=== PATIENT | female | born 1950 | race Caucasian/White ===

== ENCOUNTER 2018-02-08 14:00 | Inpatient (IN) ==
[2018-02-08] MEDS ORDERED: Naloxone 0.4 MG/ML INJ IVP PRN (19:50)
[2018-02-08] MEDS ORDERED: Nitroglycerin 0.4 MG TAB.SUBL SL PRN (19:50)
--- NOTE | 2018-02-08 20:00 | Internal Med History&Physical ---
Date of Encounter: 02/08/18 Time of Encounter: 19:58 Internal Medicine - H&P: HPI Admitted From: Intrahospital Transfer History of present illness: Ms. Mahmood is a 67 year old female with history of hypertension, anxiety, depression , Prediabetes but not on any medication was transferred from [facility] for further evaluation of persistent chest pain and sinus bradycardia. As per patient she has persistent left-sided chest pain with intermittent radiation to left shoulder and associated with occasional sweating otherwise no shortness of breath. She visited to PCP who decreased to BB dose. last BB 12.5 mg was yesterday AM. to day went to [facility] for further evaluation. normal Troponin with sinus bradycardia was found and ERP decided to transfer [facility] for further eval. at present CP is /10. also c/o dizziness today Past Med Surg Social Fam HX - Past Medical History Medical history: no medical history Psychiatric history: anxiety, depression - Social History Smoking Status: Never smoker Smokeless Tobacco Status: No Alcohol use: none Drug use: none Internal Medicine - H&P: Meds ALPRAZolam [Xanax 0.5 MG Tablet] 0.5 mg PO DAILY 02/08/18 [History] Ascorbic Acid [Vitamin C] 1,000 mg PO DAILY 02/08/18 [History] Aspirin [Lo-Dose Aspirin EC] 81 mg PO DAILY 02/08/18 [History] BuPROPion XL (24 HR) [Wellbutrin XL] 150 mg PO DAILY 02/08/18 [History] Cholecalciferol (D-3) [Vitamin D] 2,000 unit PO DAILY 02/08/18 [History] Estrogens, Conjugated [Premarin] 0.3 mg PO DAILY 02/08/18 [History] FLUoxetine HCl [Fluoxetine HCl] 40 mg PO DAILY 02/08/18 [History] Gluc Tamayo/Chondro Tamayo A/Vit C/Mn [Glucosamine Chondroitin Tab] 1 each PO DAILY [History] Metoprolol Succinate [Toprol Xl] 25 mg PO DAILY 02/08/18 [History] Multivit-Min/Iron Fum/Folic AC [Ovwos-Gdcpajm-Bqzhtrum Tablet] 1 each PO DAILY 02/08/18 [History] Oxybutynin Chloride [Ditropan Xl] 5 mg PO DAILY 02/08/18 [History] Simvastatin [Zocor] 40 mg PO HS 02/08/18 [History] 3 Allergy/AdvReac Type Severity Reaction Status Date / Time Penicillins Allergy Anaphylaxis Verified 02/08/18 16:19 All Systems PM: A 10-system review of systems was performed and is negative for pertinent findings except as documented above in the HPI. - Constitutional Vitals: Temp Pulse Resp BP Pulse Ox 97.8 F 47 18 154/84 97 02/08/18 18:01 02/08/18 18:01 02/08/18 18:01 02/08/18 18:01 02/08/18 18:01 Exam: General appearance: No acute distress, A&O X 3 , obese Head exam: Atraumatic Eye exam: EOMI, PERRLA ENT exam: Moist oral mucosa Neck nontender, supple Respiratory exam: Clear to auscultation bilaterally Cardiovascular exam: Regular rhythm with bradycardia, no systolic murmur Abdominal exam: Soft, nontender, nondistended, positive bowel sounds Extremities exam: No calf tenderness, no pedal edema Present: Skin-no rash, warm, dry, intact Neurological exam: Alert, awake, oriented 3, CN II-XII intact, no focal deficits. No facial droop. Normal speech. - Assessment and plan (1) Chest pain in adult Current Visit: No Status: Acute Assessment and plan: Atypical chest pain but persistent. Risk factor remote a smoker, family history some kind of vascular disease in parents, hypertension, prediabetes, and never had cardiac assessment. Telemetry bed, Serial troponin oxygen when necessary. Hold beta darshan due to bradycardia. Consult cardiologists tomorrow morning. May need a stress test. (2) Bradycardia Current Visit: No Status: Acute Assessment and plan: No EKG sent from [facility]. Patient also felt slight dizzy therefore symptomatic bradycardia. It could be due to the side effect of beta darshan. May give IV fluid if needed. Bedrest. Cardiology consultation. (3) HTN (hypertension) Current Visit: Yes Status: Acute Assessment and plan: Started low-dose lisinopril. Held beta darshan. Close monitoring. Qualifiers: Hypertension type: essential hypertension Qualified Code(s): I10 - Essential (primary) hypertension (4) Prediabetes Current Visit: Yes Status: Acute Assessment and plan: a1c. accuchecks, SSI. (5) Depression Current Visit: Yes Status: Chronic Assessment and plan: continue home meds. stable Qualifiers: Depression Type: unspecified Qualified Code(s): F32.9 - Major depressive disorder, single episode, unspecified (6) DVT prophylaxis Current Visit: Yes Status: Acute Assessment and plan: scd - Time Spent With Patient Total time spent is greater than 50% in coordination of care (as documented) at patient's floor/unit and/or counseling patient: 25 - 35 minutes
[2018-02-08] MEDS ORDERED: Dextrose Gel 15 GM/37.5 ML TUBE PO PRN ×2 (20:17)
[2018-02-08] MEDS ORDERED: *HR* Dextrose 50 % in Water (Syg) 50 ML SYRINGE IVP PRN (20:17)
[2018-02-08] MEDS ORDERED: D5% in Water 1,000 ML IVC PRN (20:17)
[2018-02-08 20:40] LABS: Basophils # 0.1 K/mcL (0.0-0.2); Basophils % 0.8 %; Eosinophils # 0.2 K/mcL (0.0-0.6); Eosinophils % 3.1 %; Hematocrit 42.3 % (35.3-44.9); Hemoglobin 14.2 g/dL (11.5-15.4); Immature Granulocytes % 0.2 % (0-4); Lymphocytes # 2.4 K/mcL (0.6-4.6); Lymphocytes % 37.2 %; Mean Corpuscular HGB Conc 33.6 g/dL (31.6-35.5); Mean Corpuscular Volume 92.4 fL (83.0-100.0); Mean Platelet Volume 10.7 fL (9.4-12.4); Monocytes # 0.5 K/mcL (0.0-1.3); Monocytes % 8.1 %; Neutrophils # 3.3 K/mcL (1.6-8.9); Platelet Count 239 K/mcL (140-400); Red Blood Count 4.58 M/mcL (3.82-4.97); Red Cell Distribution Width 13.2 % (11.5-14.5); Segmented Neutrophils % 50.6 %
[2018-02-08 20:51] LABS: Estimated Average Glucose 131 mg/dl; Hemoglobin A1C 6.2 %
[2018-02-08 20:59] LABS: BUN/Creatinine Ratio 19 (6-26); Blood Urea Nitrogen 19 mg/dL (8-23); Calcium 9.4 mg/dL (8.6-10.3); Carbon Dioxide 30 mEq/L (23-29); Chloride 106 mEq/L (98-107); Glucose 119 mg/dL (70-105); Osmolality,Calculated 293 (280-300); Potassium 3.9 mEq/L (3.5-5.1); Sodium 140 mEq/L (136-145); eGFR For African Americans > 60 (> 60); eGFR For Non-African Americans 56 (> 60)
[2018-02-08 21:01] LABS: Albumin 3.8 g/dL (3.5-5.7); Albumin/Globulin Ratio 1.6 (1.1-2.2); Bilirubin,Direct 0.1 mg/dL (0.0-0.2); Bilirubin,Indirect 0.3 mg/dL (0.0-1.2); Bilirubin,Total 0.4 mg/dL (0.3-1.0); Globulin 2.4 g/dL (2.4-3.5); Total Protein 6.2 g/dL (6.4-8.9)
[2018-02-08 21:14] LABS: Thyroid Stimulating Hormone 1.941 mcIU/mL (0.340-5.600)
[2018-02-08] MEDS: ALPRAZolam 0.5 MG TABLET PO SCH (21:44)
[2018-02-09] MEDS: Insulin LISPRO 300 UNITS/3 ML VIAL SQ SCH ×4 (00:06→17:15)
[2018-02-09 02:18] LABS: Chol/HDL Ratio 3.7 (0-4.9)
[2018-02-09] MEDS ORDERED: ALPRAZolam 0.5 MG TABLET PO SCH (09:00)
[2018-02-09] MEDS ORDERED: Aspirin 81 MG TAB.CHEW PO SCH (09:00)
--- NOTE | 2018-02-09 11:02 | Cardiology Consult Note ---
Date of Encounter: 02/09/18 Time of Encounter: 10:45 Assessment and Plan (1) Chest pain Current Visit: Yes Status: Acute Chest pain atypical for angina. Lasts hours and cardiac enzymes negative, EKG unremarkable with no ST-T wave changes, HR 50bpm. Will schedule for treadmill nuclear stress test to evaluate for ischemia. Will also evaluate for chronotropic incompetence. Qualifiers: Chest pain type: other chest pain Qualified Code(s): R07.89 - Other chest pain; R07.8 - Other chest pain (2) Sinus bradycardia Current Visit: Yes Status: Acute Beta darshan held. Will have patient ambulate on treadmill and evaluate for chronotropic incompetence. Consider Holter monitor as outpatient. (3) HTN (hypertension) Current Visit: No Status: Chronic Qualifiers: Hypertension type: essential hypertension Qualified Code(s): I10 - Essential (primary) hypertension Discussion w patient/family: The assessment and plan as outlined above was discussed with the patient and/or family members who expressed understanding and agreement. All questions were answered. Thank you for involving us in the care of your patient. Please call with any questions. History of Present Illness Consult date: 02/09/18 Requesting physician: Tanesha Khoury Consult reason: chest pain Chief complaint: chest pain History of present illness: Ms. Mahmood is a 67 year old female with HTN presents as transfer from [facility] ED to [facility] for evaluation of CP. For past week, pt has had intermittent chest discomfort. Chest discomfort radiates to L shoulder, associated with SOB, nausea, diaphoresis. States symptoms occur at rest. Last for hours and then resolve. Improved with Tylenol. Saw PCP who noted her HR was in 40s per pt and PCP decreased her beta darshan dose to metoprolol 12.5mg daily. Denies syncope. Occasional orthostatic lightheadedness. Denies prior cardiac history, prior cardiac testing. Denies family history of CAD. Former smoker- quit 8 years ago, previously 1/2ppd. Past Med Surg Social Fam HX - Past Medical History Source: patient Medical history: hypertension Psychiatric history: anxiety, depression - Social History Smoking Status: Former smoker (quit 8 years ago, previous 1/2ppd) Smokeless Tobacco Status: No Alcohol use: none Drug use: none - Family History Father Hx Family Cardiac Disorders: Yes (pacemaker) Mother Hx Family Cardiac Disorders: Yes (carotid artery disease) Medications and Allergies ALPRAZolam [Xanax 0.5 MG Tablet] 0.5 mg PO HS 02/08/18 [History] Ascorbic Acid [Vitamin C] 1,000 mg PO DAILY 02/08/18 [History] Aspirin [Lo-Dose Aspirin EC] 81 mg PO DAILY 02/08/18 [History] BuPROPion XL (24 HR) [Wellbutrin XL] 150 mg PO DAILY 02/08/18 [History] Cholecalciferol (D-3) [Vitamin D] 2,000 unit PO DAILY 02/08/18 [History] Estrogens, Conjugated [Premarin] 0.3 mg PO DAILY 02/08/18 [History] FLUoxetine HCl [Fluoxetine HCl] 40 mg PO DAILY 02/08/18 [History] Gluc Tamayo/Chondro Tamayo A/Vit C/Mn [Glucosamine Chondroitin Tab] 1 each PO DAILY [History] Metoprolol Succinate [Toprol Xl] 25 mg PO DAILY 02/08/18 [History] Multivit-Min/Iron Fum/Folic AC [Pmylg-Hihfvsl-Aasxusbt Tablet] 1 each PO DAILY 02/08/18 [History] Oxybutynin Chloride [Ditropan Xl] 5 mg PO DAILY 02/08/18 [History] Simvastatin [Zocor] 40 mg PO HS 02/08/18 [History] 3 Allergy/AdvReac Type Severity Reaction Status Date / Time Penicillins Allergy Anaphylaxis Verified 02/08/18 16:19 All Systems Review: The remainder of the systems were reviewed and are negative - Cardiovascular Cardiovascular: as per HPI Physical Examination Vital Signs, Last 4 Hours Temp Pulse Resp BP Pulse Ox 02/09/18 07:11 98.0 F 51 16 119/75 96 General: Conversant, No Apparent Distress HEENT: Atraumatic, Normocephaly, Mucus Membranes Moist Neck: No JVD, Normal carotid pulses Cardiac: Reg Rate and Rhythm, Normal S1 and S2, No Murmur Lungs: Normal Breath Sounds, No Wheeze, Rales, Rhonchi Neuro: Alert and responsive, No focal deficits noted Abdomen: Soft, Non-Tender Skin: No rashes noted on visualized skin Musculoskeletal: No Chest Wall Tenderness Extremities: No Clubbing, No Cyanosis, No Edema, Normal Pulses Results 02/08/18 20:17 02/08/18 20:17 Lab Results 02/08/18 02/08/18 02/08/18 20:17 20:17 20:17 WBC 6.5 Hgb 14.2 Hct 42.3 Plt Count 239 D-Dimer Sodium Potassium Chloride Carbon Dioxide BUN Creatinine Glucose Calcium Total Bilirubin 0.4 AST 18 ALT 14 Alkaline Phosphatase 79 Troponin I < 0.03 B-Natriuretic Peptide TSH 1.941 02/08/18 02/08/18 02/08/18 20:17 20:17 20:29 WBC Hgb Hct Plt Count D-Dimer < 215 Sodium 140 Potassium 3.9 Chloride 106 Carbon Dioxide 30 H BUN 19 Creatinine 1.00 Glucose 119 H Calcium 9.4 Total Bilirubin AST ALT Alkaline Phosphatase Troponin I B-Natriuretic Peptide 62 TSH 02/09/18 02/09/18 01:39 08:46 WBC Hgb Hct Plt Count D-Dimer Sodium Potassium Chloride Carbon Dioxide BUN Creatinine Glucose Calcium Total Bilirubin AST ALT Alkaline Phosphatase Troponin I < 0.03 < 0.03 B-Natriuretic Peptide TSH - EKG Interpretation EKG results cardiology: personally reviewed (sinus bradycardia with HR 50bpm) Consult Discharge Plan - Plan Referrals: Raman Gates MD [Primary Care Provider] -
[2018-02-09] MEDS ORDERED: Regadenoson 0.4 MG/5 ML SYRINGE IVP ONE (12:22)
[2018-02-09] MEDS: BuPROPion XL (24 HR) 150 MG TABLET PO SCH (14:31)
[2018-02-09] MEDS: FLUoxetine 20 MG CAPSULE PO SCH (14:31)
[2018-02-09] MEDS: Aspirin Enteric Coated 81 MG Tablet PO SCH (14:31)
--- NOTE | 2018-02-09 15:21 | Event Note ---
Date of Encounter: 02/09/18 Time of Encounter: 15:20 - Cardiology Event Note Per discussion with Dr.Jennifer Campos, TTE with LVEF normal. Stress test with no evidence of ischemia. Recommend discontinuation of AV sonali blockers. Cardiology will sign off.
[2018-02-09] MEDS ORDERED: *HR* HYDROcodone/Acet 10/325 mg TABLET PO PRN (15:52)
--- NOTE | 2018-02-09 16:37 | Internal Med Progress Note ---
Date of Encounter: 02/09/18 Time of Encounter: 16:34 - Assessment and plan (1) Bradycardia Current Visit: No Status: Acute Assessment and plan: EKG sinus bradycardia with heart rate 50 we will continue to hold beta darshan. We will continue to monitor overnight Cardiology has seen the patient recommending Holter monitor as outpatient No EKG sent from [facility]. Patient also felt slight dizzy therefore symptomatic bradycardia. It could be due to the side effect of beta darshan. May give IV fluid if needed. Bedrest. Cardiology consultation. (2) Chest pain in adult Current Visit: No Status: Acute Assessment and plan: Patient continues to experience chest pain is reproducible with palpation. EKG with no ST-T wave abnormalities she is to undergo a stress test Cardiology has been consulted Continuous cardiac monitoring Continue with aspirin and statin we will hold beta darshan due to bradycardia (3) HTN (hypertension) Current Visit: No Status: Chronic Assessment and plan: 1 continue with lisinopril we will hold metoprolol due to bradycardia Qualifiers: Hypertension type: essential hypertension Qualified Code(s): I10 - Essential (primary) hypertension (4) Depression Current Visit: Yes Status: Chronic Assessment and plan: continue home meds. stable Qualifiers: Depression Type: unspecified Qualified Code(s): F32.9 - Major depressive disorder, single episode, unspecified (5) Prediabetes Current Visit: Yes Status: Acute Assessment and plan: a1c. accuchecks, SSI. (6) DVT prophylaxis Current Visit: Yes Status: Acute Assessment and plan: scd - Time Spent With Patient Total time spent is greater than 50% in coordination of care (as documented) at patient's floor/unit and/or counseling patient: - Subjective Interval history: Patient was seen and examined at bedside. Presently she complains of headache, which she describes as throbbing occurring frontal lobe radiating down to her mandaeism. Denies any vision changes nausea or photophobia. She continues to experience chest pain midsternal, it is reproducible with palpation of her chest. She was seen by cardiology she is to undergo a cardiac stress test heart rate has been 50s sinus rhythm opponens are negative 3 - Constitutional Vitals: Temp Pulse Resp BP Pulse Ox 98.0 F 53 15 161/86 98 02/09/18 15:24 02/09/18 15:24 02/09/18 15:24 02/09/18 15:24 02/09/18 15:24 General appearance: Present: A&O X 3 - Head Head exam: Present: atraumatic, normocephalic - Eye Eye exam: Present: PERRL, conjuntiva pink, sclera anicteric Pupils: Present: PERRL - Neck Neck exam general surgery: Present: supple, trachea midline. Absent: lymphadenopathy - Respiratory Respiratory exam: Present: CTAB. Absent: accessory muscle use, rales, rhonchi, wheezes - Cardiovascular Cardiovascular exam: Present: RRR, +S1, +S2. Absent: diastolic murmur, gallop, rubs, systolic murmur - GI/Abdominal GI/Abdominal exam: Present: normal bowel sounds, soft, no peritoneal signs. Absent: distended, tenderness - Extremities Exam Extremities exam: Present: warm, radial pulses palpable and symmetrical. Absent : calf tenderness, cyanotic, pedal edema - Neurological Exam Neurological exam: Present: CN II-XII intact, oriented X3, no focal deficits. Absent: pronater drift, facial droop, speech deficit - Skin Skin exam: Present: dry, intact Internal Medicine: Result - Labs CBC & Chem 7: 02/08/18 20:17 02/08/18 20:17 Labs: Short CBC 02/08/18 Range/Units 20:17 WBC 6.5 (4.3-11.1) K/mcL Hgb 14.2 (11.5-15.4) g/dL Hct 42.3 (35.3-44.9) % Plt Count 239 (140-400) K/mcL Neutrophils # 3.3 (1.6-8.9) K/mcL BMP 02/08/18 20:17 Sodium 140 Potassium 3.9 Chloride 106 Carbon Dioxide 30 H BUN 19 Creatinine 1.00 Glucose 119 H Calcium 9.4 Cardiac Enzymes 02/08/18 02/09/18 02/09/18 Range/Units 20:17 01:39 08:46 Troponin I < 0.03 < 0.03 < 0.03 (< 0.04) ng/mL Liver Function 02/08/18 Range/Units 20:17 Total Bilirubin 0.4 (0.3-1.0) mg/dL Direct Bilirubin 0.1 (0.0-0.2) mg/dL AST 18 (13-39) Units/L ALT 14 (7-52) Units/L Alkaline Phosphatase 79 (34-104) Units/L Albumin 3.8 (3.5-5.7) g/dL - ABG Interpretation ABG results: PT/INR, D-dimer D-Dimer < 215 ng/mLFEU (0-500) 02/08/18 20:29 - Impressions Impressions Chest X-Ray 02/08/18 19:53 IMPRESSION: No evidence of acute cardiopulmonary disease. D/ / Frantz Leigh MD / Frantz Leigh MD Interpreting Provider: Frantz Leigh MD Echocardiogram 02/09/18 19:51 Impressions: LVEF 60-65%. Normal left ventricular size and systolic function. Normal diastolic function of the left ventricle. Normal right ventricular size and function. No significant valvular dysfunction. No pulmonary hypertension. Left Ventricular Wall Motion: Rest Echo Findings All wall segments showed normal motion. Findings: Study Quality * Technically adequate exam. ECG Findings * Sinus bradycardia. Left Ventricle * LVEF 60-65%. * Normal LV chamber size, wall thickness and function. Right Ventricle * Normal right ventricular structure and function. Left Atrium * Normal left atrial size. Right Atrium * Normal right atrial size. Interatrial Septum * Interatrial septum not well evaluated. Aortic Valve * Trileaflet aortic valve. * Trileaflet aortic valve with normal function. * No aortic regurgitation. * No aortic stenosis. Mitral Valve * Normal mitral valve structure and function. Tricuspid Valve * Normal tricuspid valve structure. * Trace tricuspid regurgitation. * No evidence of pulmonary hypertension. Pulmonic Valve * Pulmonic valve not well visualized. Aorta * Normally sized aortic root. Pericardium * The pericardium appears normal. IVC * Normal IVC dimensions and inspiratory collapse. Consult Discharge Plan - Plan Referrals: Raman Gates MD [Primary Care Provider] -
[2018-02-09] MEDS: ALPRAZolam 0.5 MG TABLET PO SCH (20:51)
[2018-02-10] MEDS: Insulin LISPRO 300 UNITS/3 ML VIAL SQ SCH ×2 (00:13→08:56)
[2018-02-10 05:16] LABS: Hematocrit 41.4 % (35.3-44.9); Hemoglobin 13.5 g/dL (11.5-15.4); Mean Corpuscular HGB Conc 32.6 g/dL (31.6-35.5); Mean Corpuscular Hemoglobin 30.5 pg (28.0-33.3); Mean Corpuscular Volume 93.5 fL (83.0-100.0); Mean Platelet Volume 10.9 fL (9.4-12.4); Platelet Count 226 K/mcL (140-400); Red Blood Count 4.43 M/mcL (3.82-4.97); Red Cell Distribution Width 13.3 % (11.5-14.5)
[2018-02-10 05:36] LABS: Calcium 8.9 mg/dL (8.6-10.3); Potassium 4.1 mEq/L (3.5-5.1)
[2018-02-10 07:09] VITALS: BP 125/75
[2018-02-10] MEDS: Aspirin Enteric Coated 81 MG Tablet PO SCH (07:40)
[2018-02-10] MEDS: FLUoxetine 20 MG CAPSULE PO SCH (07:40)
[2018-02-10] MEDS: BuPROPion XL (24 HR) 150 MG TABLET PO SCH (07:40)
--- NOTE | 2018-02-10 08:54 | Discharge Summary ---
- NOTES TO OUTPATIENT PROVIDER Notes to Outpatient Provider: Stop metoprolol dt bradycardia - holter monitor as outpatient Orders not resulted at time of discharge: Pending orders 02/08/18 19:50 ECG 12 lead ECG [ECG] Stat 02/08/18 19:51 ECG 12 lead ECG [ECG] Routine 02/09/18 09:57 ECG 12 lead ECG [ECG] Routine 02/09/18 10:54 NM sveta perf SPECT multi [NM] Routine Date of Encounter: 02/10/18 Time of Encounter: 08:52 - Discharge Diagnosis (1) Bradycardia Priority: Primary Status: Acute (2) Chest pain in adult Priority: Primary Status: Acute (3) HTN (hypertension) Priority: Secondary Status: Chronic Qualifiers: Hypertension type: essential hypertension Qualified Code(s): I10 - Essential (primary) hypertension (4) Depression Priority: Secondary Status: Chronic Qualifiers: Depression Type: unspecified Qualified Code(s): F32.9 - Major depressive disorder, single episode, unspecified (5) Prediabetes Priority: Secondary Status: Acute Hospital course: Ms. Mahmood is a 67 year old female past Jerod history of hypertension anxiety and depression. Patient was a transfer from [facility] for evaluation of chest pain. For the past week she has been expressing intermittent chest discomfort at radiates her left shoulder with associated symptoms of shortness of breath nausea and diaphoresis. Symptoms occur at rest and last for hours and then resolve on their own. Symptoms do improve with Tylenol. She did see her PCP who noted that her heart rate were in the 40s. PCP did decrease her beta darshan dose to metoprolol 12.5 daily. She denies any syncopal episodes however does experience occasional orthostatic lightheadedness. EKG sinus bradycardia with no ST-T wave abnormalities cardiac troponins are negative she was seen by cardiology who recommended cardiac stress test which was completed and was negative for any ischemia or infarct. He was monitored overnight with no arrhythmias heart rate 50s 60s upper 40s. Cardiology recommending discontinuation of AV sonali blockers and to follow-up with PCP. I did update the patient on current findings and advised patient to follow-up with PCP. Advised patient to stop taking her beta darshan. Patient verbalized understanding she is hemodynamically stable at this time is ready for discharge. Discharge discussed with: patient - Time Spent with Patient Total time spent providing and/or coordinating discharge services: - Discharge Medications Home Medications: ALPRAZolam [Xanax 0.5 MG Tablet] 0.5 mg PO HS 02/08/18 [History] Ascorbic Acid [Vitamin C] 1,000 mg PO DAILY 02/08/18 [History] Aspirin [Lo-Dose Aspirin EC] 81 mg PO DAILY 02/08/18 [History] BuPROPion XL (24 HR) [Wellbutrin XL] 150 mg PO DAILY 02/08/18 [History] Cholecalciferol (D-3) [Vitamin D] 2,000 unit PO DAILY 02/08/18 [History] Estrogens, Conjugated [Premarin] 0.3 mg PO DAILY 02/08/18 [History] FLUoxetine HCl [Fluoxetine HCl] 40 mg PO DAILY 02/08/18 [History] Gluc Tamayo/Chondro Tamayo A/Vit C/Mn [Glucosamine Chondroitin Tab] 1 each PO DAILY [History] Multivit-Min/Iron Fum/Folic AC [Zrlio-Seyilyi-Ecxnclht Tablet] 1 each PO DAILY 02/08/18 [History] Oxybutynin Chloride [Ditropan Xl] 5 mg PO DAILY 02/08/18 [History] Simvastatin [Zocor] 40 mg PO HS 02/08/18 [History] Allergies/Adverse Reactions: 3 Allergy/AdvReac Type Severity Reaction Status Date / Time Penicillins Allergy Anaphylaxis Verified 02/08/18 16:19 Date of admission: 02/09/18 16:45 Primary care physician: Raman Gates MD Consults: 02/08/18 19:50 Consult to Cardiology [CONS] Routine Comment: Consulting Provider: Cardiology [facility] Reason for Consult: Persistent chest pain, bradycardia Call Completed: No 02/08/18 19:51 Consult to Nurse Navigator [CONS] Routine Comment: Discharging clinician: Ca Jones Anticipated date of discharge: 02/10/18 - Constitutional Vitals: Temp Pulse Resp BP Pulse Ox 97.7 F 47 14 125/75 96 02/10/18 07:07 02/10/18 07:07 02/10/18 07:07 02/10/18 07:07 02/10/18 07:07 General appearance: Present: A&O X 3 - Head Head exam: Present: atraumatic, normocephalic - Eye Eye exam: Present: PERRL, conjuntiva pink, sclera anicteric Pupils: Present: PERRL - Neck Neck exam general surgery: Present: supple, trachea midline. Absent: lymphadenopathy - Respiratory Respiratory exam: Present: CTAB. Absent: accessory muscle use, rales, rhonchi, wheezes - Cardiovascular Cardiovascular exam: Present: bradycardia, RRR, +S1, +S2. Absent: diastolic murmur, gallop, rubs, systolic murmur - GI/Abdominal GI/Abdominal exam: Present: normal bowel sounds, soft, no peritoneal signs. Absent: distended, tenderness - Extremities Exam Extremities exam: Present: warm, radial pulses palpable and symmetrical. Absent : calf tenderness, cyanotic, pedal edema - Neurological Exam Neurological exam: Present: CN II-XII intact, oriented X3, no focal deficits. Absent: pronater drift, facial droop, speech deficit - Skin Skin exam: Present: dry, intact - Patient Status Disposition: Home, Self-Care Condition: Good Functional capacity at discharge: independent ambulation - Discharge Instructions Instructions: Chest Pain (DC) Follow Up With: Raman Gates MD [Primary Care Provider] - (Office will call you to make an appointment. If office has not called you by 02/12/2018, call office to make an appointment to see provider within 7 to 10 days after discharge.) Libby Campos MD [Partnered Physician] - Additional Instructions: Follow up [facility] - Diet and Activity Activity: resume usual activities as tolerated Diet: advance to your usual diet - VTE Documentation of Mechanical Device: Intermittent pneumatic compression device
--- NOTE | 2018-02-11 10:21 | Electrocardiograph Report ---
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
--- NOTE | 2018-02-11 10:21 | Electrocardiograph Report ---
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
--- NOTE | 2018-02-11 10:24 | Electrocardiograph Report ---
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
== END 2018-02-10 09:40 | disposition home or self-care (01) | DRG 310 ==
LOC: 3BNU
PROVIDERS: ADMIT Nurse Practitioner Acute Care; ATTEND Nurse Practitioner Acute Care